=== PATIENT | female | born 1995 | race Caucasian/White ===

== ENCOUNTER 2018-07-24 19:07 | Emergency (ER) | payer OTHER ==
[~2018-07-24] VITALS: Ht 154.9 cm; Wt 87.9 kg
[2018-07-24 19:09] VITALS: BP 131/87
[2018-07-24] MEDS ORDERED: DEXAMETHASONE 4 MG TABLET ONE (19:23)
[2018-07-24] MEDS ORDERED: DEXAMETHASONE 4 MG TABLET PO ONE (19:30)
== END 2018-07-24 19:54 | disposition home or self-care (01) ==
LOC: ED 19:48
DX: H66.011 Acute suppurative otitis media with spontaneous rupture of ear drum, right ear (principal)
CPT/HCPCS: 99283